=== PATIENT | female | born 1990 | race Caucasian/White ===

== ENCOUNTER 2016-05-21 06:48 | Emergency (ER) | payer BC ==
[~2016-05-21] VITALS: Ht 167.6 cm; Wt 82.5 kg
[~2016-05-21 06:48] MED LIST: BCPILLS PO; PRENTAB26 PO; [UNRECOGNIZED DRUG - REMARK] PO
[2016-05-21 06:51] VITALS: TEMP 37.1; Ht 167.6 cm; Wt 82.5 kg
[2016-05-21] MEDS ORDERED: ACET-749 PO (07:01)
[2016-05-21] MEDS ORDERED: FLUO10CA48 PO (07:01)
[2016-05-21] MEDS ORDERED: DiphenhydrAMINE HCL 50 MG/ML VIAL IV STA (07:03)
[2016-05-21] MEDS ORDERED: MoRPHine SULFATE 10 MG/ML CARP/VIAL IV STA (07:03)
[2016-05-21] MEDS ORDERED: ONDANSETRON INJ 2 MG/ML 2 ML VIAL IV STA (07:03)
[2016-05-21] MEDS ORDERED: DEXAMETHASONE SOD INJ 10 MG/ML VIAL IV ONE (08:00)
--- NOTE | 2016-05-21 08:59 | EMERGENCY ROOM VISIT NOTE ---
History First contact with patient: 06:53 Chief Complaint: HEADACHE Stated Complaint: HEADACHE 5 DAYS 29WKS CALLED L&D History of Present Illness The patient is a 26 year old female who presents to the Emergency Room with complaints of headache for the past 5 days. The patient is 29 weeks . She started with a headache 5 days ago in the left frontal parietal region. She denies any associated visual changes, dizziness. The patient admits to some nausea and vomiting. The patient denies any recent URI symptoms. She denies any arm or leg weakness. The patient states that she had a headache the entire first trimester of this . This is her first . The patient states when she had that headache it would go away with Tylenol. She tried Tylenol this time without any relief. She called in to speak with Dr. Parra's nurse yesterday and was prescribed Tylenol with Codeine. She states that has been taken away the headache. The patient denies any history of migraine headaches. She states this is not the worst headache of her life. Review of Systems 10 system review was performed and was negative unless stated otherwise history of present illness. Family History No pertinent family history Social History Smoking Status: Never Smoker Smokeless Tobacco Use: No Alcohol Use: none Drug Use: none Marital Status: Housing Status: lives with family Occupation Status: employed Current/Historical Medications Scheduled Fluoxetine (Prozac), Unknown Dose PO DAILY Multivit/Min/Iron/Fol Ac/Pren ( Vitamin), 1 TAB PO DAILY Scheduled PRN Acetaminophen/Codeine (Tylenol W/Codeine #3), 1 TAB PO Q4 PRN for Pain Allergies Coded Allergies: No Known Allergies (Unverified , 05/21/16) Physical Exam Vital Signs Date Time Temp Pulse Resp B/P Pulse Ox O2 Delivery O2 Flow Rate FiO2 05/21/16 08:02 94 111/73 98 05/21/16 06:51 37.1 88 16 119/71 97 Room Air Physical Exam GENERAL: 29 week 26-year-old female appears in no acute distress. MENTAL: Alert and oriented 3 EYES: PERRLA. EOMs intact. EARS: Canals clear. TMs without fluid level noted. NECK: Supple, no lymphadenopathy noted. No carotid bruits noted. LUNGS: Clear auscultation without wheezes rales or rhonchi. CARDIAC: Regular rate and rhythm without murmur. Pulses is full and equal throughout. NEURO:Cranial nerves two through 12 intact. Cerebellar function intact with [id number]. Fine motor intact with alternating finger motions. Medical Decision & Procedures Medications Administered Medications (Trade) Dose Ordered Sig/Yazmin Route Start Time Stop Time Status Last Admin Dose Admin Morphine Sulfate (MoRPHine SULFATE INJ) 6 mg NOW STAT IV 05/21/16 07:03 05/21/16 07:05 DC 05/21/16 07:18 6 MG Ondansetron HCl (Zofran Inj) 4 mg NOW STAT IV 05/21/16 07:03 05/21/16 07:05 DC 05/21/16 07:17 4 MG Diphenhydramine HCl (Benadryl Inj) 25 mg NOW STAT IV 05/21/16 07:03 05/21/16 07:05 DC 05/21/16 07:19 25 MG Dexamethasone Sodium Phosphate (Decadron Inj) 10 mg NOW ONCE IV 05/21/16 08:00 05/21/16 08:01 DC 05/21/16 08:01 10 MG ED Course The patient was evaluated. The patient's case was discussed with Dr. Guillen who agreed with treatment plan. IV access was obtained. Morphine 6 mg IV, Zofran 4 mg IV and Benadryl 25 mg IV. The patient was reevaluated and still had a slight headache therefore she was given Decadron 10 mg IV. The patient was reevaluated and stated that her head headache was now tolerable at a 4 out of 10 and was discharged home in stable condition. Medical Decision Differential includes: Acute intracranial bleed, trauma, meningitis, encephalitis, increased intracranial pressure, mass or mass effect, facial or dental infection, temporal arteritis, CVA, TIA, acute hypertensive emergency, sinusitis, carbon monoxide exposure. Impression Primary Impression: Headache Departure Information Dispostion Home / Self-Care Condition GOOD Referrals No Doctor, Assigned (PCP) Forms HOME CARE DOCUMENTATION FORM, IMPORTANT VISIT INFORMATION Patient Instructions Headache Pain, My [facility] Additional Instructions Tylenol every 6 hours as needed for pain. Take Tylenol with Codeine as needed for more severe headache. Do not drive while taking the Tylenol with Codeine. Make sure you do not take more than 4 g of Tylenol in a 24 hours. If symptoms persist or worsen, return to ER. Problem Qualifiers Primary Impression: Headache Headache type: unspecified Headache chronicity pattern: acute headache
[2016-05-21 09:08] VITALS: BP 131/72; PULSE 77; O2SAT 98
== END 2016-05-21 09:09 | disposition home or self-care (01) ==
LOC: C.EDB 06:49
DX: O26.893 Other specified pregnancy related conditions, third trimester (principal); R51 Headache; Z3A.29 29 weeks gestation of pregnancy

== ENCOUNTER 2016-07-26 13:31 | Outpatient (CLI) | payer BC ==
[~2016-07-26] VITALS: Ht 170.2 cm; Wt 89.0 kg
[~2016-07-26 13:31] MED LIST changes: +ACET-749 PO; -BCPILLS PO; +FLUO10CA48 PO; -[UNRECOGNIZED DRUG - REMARK] PO
[2016-07-26 15:10] VITALS: Ht 170.2 cm; Wt 89.0 kg
[2016-07-26] MEDS ORDERED: VALA500T60 PO (15:22)
--- NOTE | 2016-07-29 09:42 | EDITING REQUIRED CODING QUERY ---
DIAGNOSIS NEEDED To promote full compliance with coding requirements relating to patient care, physician participation is requested in all cases of clinical coder uncertainty. Please assist us with the question(s) below: Coding Question: The patient received care in labor and delivery on 07/26/16 as noted within the record. Please document the diagnosis that is being addressed by the medication/treatment. Provider Response: DIAGNOSIS: contractions Thank you for your assistance, Evy Rivera - Digital Watch Assembler
== END 2016-07-26 16:49 | disposition home or self-care (01) ==
LOC: C.OPB 13:31 → C.LD 13:31 → C.OPB 16:49
PROVIDERS: ATTEND Obstetrics & Gynecology
DX: O62.9 Abnormality of forces of labor, unspecified (principal); Z3A.38 38 weeks gestation of pregnancy

== ENCOUNTER 2016-07-26 21:00 | Inpatient (IN) | payer BC ==
[~2016-07-26] VITALS: Ht 170.2 cm; Wt 89.1 kg
[~2016-07-26 21:00] MED LIST changes: +VALA500T60 PO
[2016-07-26 21:07] VITALS: Ht 170.2 cm; Wt 89.1 kg
[2016-07-26] MEDS ORDERED: LACTATED RINGER'S 1000ML 1,000 ML IV PRN (23:17)
[2016-07-26] MEDS ORDERED: NURSING VERBAL MED ORDER ONE (23:30)
[2016-07-26] MEDS ORDERED: PENICILLIN G POTASSIUM IV 6 MU in DEXTROSE 5% 250ML 250 ML IV ONE (23:30)
[2016-07-26] MEDS ORDERED: BUTORPHANOL TARTRATE 1 MG/ML VIAL IV PRN (23:45)
[2016-07-26 23:47] LABS: HEMATOCRIT 32.5 % (37-47); MEAN CELL VOLUME 87.1 fL (80-100); MEAN CORPUSCULAR HEMOGLOBIN 30.6 pg (25-34); RED BLOOD COUNT 3.73 M/uL (4.2-5.4); WHITE BLOOD COUNT 12.22 K/uL (4.8-10.8)
[2016-07-26 23:48] LABS: MEAN CORPUSCULAR HGB CONC 35.1 g/dl (32-36); MEAN PLATELET VOLUME 11.4 fL (7.4-10.4); PLATELET COUNT 211 K/uL (130-400)
[2016-07-26] MEDS: LACTATED RINGER'S 1000ML 1,000 ML IV SCH (23:49)
[2016-07-27] MEDS ORDERED: EpHEDrine SULFATE INJ 50 MG/ML AMP ONE (02:00)
[2016-07-27] MEDS ORDERED: BUPIVACAINE 0.25% 30 ML VIAL ONE ×2 (02:00→11:50)
[2016-07-27] MEDS ORDERED: FENTANYL CITRATE INJ 50 MCG/1 ML 2 ML VIAL ONE ×2 (02:01→11:50)
[2016-07-27] MEDS ORDERED: FENTANYL 2MCG/ML ROPIV 1.25MG/ML 100ML BAG EPI ONE (02:01)
--- NOTE | 2016-07-27 02:16 | Progress Note ---
Progress Note Date of Service July 27, 2016. Progress Note Admit Note 26 F P0000 at 38.6 weeks with onset of labor. Cervix 6-7/90/0. FHT Cat 1. GBS positive. Will get epidural for pain.
[2016-07-27] MEDS: LACTATED RINGER'S 1000ML 1,000 ML IV SCH ×3 (02:25→09:35)
[2016-07-27] MEDS ORDERED: NALOXONE HCL INJ 1 MG in SODIUM CHLORIDE 0.9% 1000ML 1,000 ML IV PRN (02:52)
[2016-07-27] MEDS ORDERED: LACTATED RINGER'S 1000ML 500 ML IV PRN ×2 (02:52→08:15)
--- NOTE | 2016-07-27 02:58 | Progress Note ---
Progress Note Date of Service July 27, 2016. Progress Note Epidural placed for labor pain management. No resistance felt to tuhoy needle insertion. Free flowing CSF noted on removal of Tuhoy stylette. Stylette replaced and needle withdrawn approximately 1cm. TOMI was felt immediately at this new location. Catheter threaded, negative aspiration and negative test dose. Epidural was dosed at this point and run at normal settings. Patient was educated on complication and the possibility of a PDPH. I explained that if this headache should arise while she was still in house, we could perform EBP at bedside before her discharge. Would prefer that this catheter be capped and stay in place after delivery. 24 hours would be best, but at least 12 hours may help decrease the incidence of a PDPH.
[2016-07-27] MEDS ORDERED: DiphenhydrAMINE HCL 50 MG/ML VIAL IV PRN (03:00)
[2016-07-27] MEDS ORDERED: NALOXONE HCL INJ 0.4 MG/1 ML VIAL/CARP IV PRN (03:00)
[2016-07-27] MEDS ORDERED: EpHEDrine SULFATE INJ 50 MG/ML AMP IV PRN (03:00)
[2016-07-27] MEDS ORDERED: ONDANSETRON INJ 2 MG/ML 2 ML VIAL IV PRN (03:00)
[2016-07-27] MEDS ORDERED: NALBUPHINE HCL INJ 10 MG/ML AMP IV PRN (03:00)
[2016-07-27] MEDS ORDERED: PROMETHAZINE HCL INJ 6.25 MG in SODIUM CHLORIDE 0.9% 50ML 50 ML IV PRN (03:00)
[2016-07-27] MEDS: PENICILLIN G POTASSIUM IV 3 MU in DEXTROSE 5% 100ML 100 ML IV PRN ×4 (03:47→15:06)
[2016-07-27] MEDS: FENTANYL 2MCG/ML ROPIV 1.25MG/ML 100ML BAG EPI PRN ×2 (07:06→12:08)
[2016-07-27] MEDS: OXYTOCIN 30 UNITS/500ML NSS IV PRN ×2 (08:37→16:22)
[2016-07-27] MEDS ORDERED: FENTANYL 2MCG/ML ROPIV 1.25MG/ML 100ML BAG EPI PRN (12:15)
[2016-07-27] MEDS ORDERED: METHYLERGONOVINE MALEATE 0.2 MG/ML AMP ONE (16:00)
[2016-07-27] MEDS ORDERED: MISOPROSTOL 200 MCG TAB ONE (16:24)
[2016-07-27] MEDS ORDERED: SUPERCREAM 0.870 % 15GM JAR EXT PRN (16:45)
[2016-07-27] MEDS ORDERED: ACETAMINOPHEN/CODEINE 300/30MG TAB PO PRN ×2 (16:45)
[2016-07-27] MEDS ORDERED: LANOLIN OINT EXT PRN ×2 (16:45)
[2016-07-27] MEDS ORDERED: OXYCODONE/ACETAMINOPHEN 5-325 TAB PO PRN (16:45)
[2016-07-27] MEDS ORDERED: OXYTOCIN 30 UNITS/500ML NSS IV PRN (16:45)
[2016-07-27] MEDS ORDERED: HYDROCORTISONE ACETATE 25 MG SUPP PR PRN (16:45)
[2016-07-27] MEDS ORDERED: METHYLERGONOVINE MALEATE 0.2 MG/ML AMP IM ONE (16:45)
[2016-07-27] MEDS ORDERED: MISOPROSTOL 200 MCG TAB PR ONE (17:00)
--- NOTE | 2016-07-27 17:25 | OPERATIVE REPORT ---
DATE OF OPERATION: 07/27/2016 DELIVERY NOTE The patient delivered a live female in occiput anterior presentation. There was no nuchal cord. Infant was delivered and placed on mother's abdomen. At this point, it was noted that she had at terminal meconium. Delayed cord clamp was performed. Cord gas as well as cord blood was obtained. Placenta was spontaneously delivered. Infant's weight is pending. Apgars 8 and 9. Inspection of the perineum showed a second-degree midline laceration which was repaired in layers with 2-0 Vicryl. Rectal exam post-repair showed good sphincter tone. ESTIMATED BLOOD LOSS: 500 mL. The patient received IV Pitocin, Methergine and Cytotec. There was good hemostasis at the end of the repair. Baby and mother are doing well in recovery. COUNTS: Lap, sponges and needles accounted for x2. I attest to the content of the Intraoperative Record and any orders documented therein. Any exceptio ns are noted below.
[2016-07-27] MEDS: IBUPROFEN 600 MG TAB PO PRN (18:03)
[2016-07-27 18:24] LABS: BENZODIAZEPINE, URINE NEG (NEG); COCAINE,URINE NEG (NEG); PHENCYCLIDINE, URINE NEG (NEG)
[2016-07-27 19:00] VITALS: BP 134/84; PULSE 93; TEMP 37.3
[2016-07-27] MEDS: DOCUSATE SODIUM 100 MG CAP PO SCH (19:12)
[2016-07-27] MEDS: BENZOCAINE 20% AER SPR 82.5 GM CAN EXT PRN (19:13)
[2016-07-27 23:45] VITALS: BP 135/87; PULSE 89; TEMP 36.9; O2SAT 98
[2016-07-28] MEDS: IBUPROFEN 600 MG TAB PO PRN ×3 (00:05→16:25)
[2016-07-28 03:52] VITALS: BP 127/83; PULSE 79; TEMP 37.1; O2SAT 96
--- NOTE | 2016-07-28 07:27 | OB/GYN Progress Note ---
DELIVERY MAN Progress Note Date of Service: July 28, 2016. Patient is seen and examined. She feels well, no complaints. Ambulating without dizziness Voiding without difficulty Tolerating regular diet with out N&V Bleeding is minimal No fever/ chills/ CP/ SOB/ N&V/ Leg pain Breast feeding without problems Date Time Temp Pulse Resp B/P Pulse Ox O2 Delivery O2 Flow Rate FiO2 07/28/16 03:52 37.1 79 16 127/83 96 Room Air 07/27/16 23:45 36.9 89 16 135/87 98 Room Air 07/27/16 23:45 Room Air 07/27/16 19:00 Room Air 07/27/16 19:00 37.3 93 18 134/84 Room Air PE: General: Alert, orientedx3, NAD Abd: soft, NT, fundus firm, below Umbilicus Perineum intact, Lochia rubra minimal Ext; NT, no edema AP: 26 yo s/p , ppd# 1 VSS Afebrile doing well Continue routine care All questions were answered D/C home tomorrow
[2016-07-28 07:30] VITALS: BP 128/89; PULSE 79; TEMP 36.4; O2SAT 98
--- NOTE | 2016-07-28 07:44 | Anesthesia Procedure Note ---
Anesthesia Epidural Removal Nt Date & Time July 28, 2016 at 07:40 Vital Signs Pain Intensity: 5.0 Vital Signs Past 12 Hours Date Time Temp Pulse Resp B/P Pulse Ox O2 Delivery O2 Flow Rate FiO2 07/28/16 03:52 37.1 79 16 127/83 96 Room Air 07/27/16 23:45 36.9 89 16 135/87 98 Room Air 07/27/16 23:45 Room Air Notes Mental Status: alert / awake / arousable, participated in evaluation Nausea / Vomiting: adequately controlled Pain: adequately controlled Airway Patency, RR, SpO2: stable & adequate BP & HR: stable & adequate Hydration State: stable & adequate Neuraxial Anesthesia: was administered, sensory block is resolved Anesthetic Complications: no major complications apparent, pt satisfied with anesthetic care Epidural: removed without complications, with tip intact Notes: Pt had an dural puncture during epidural insertion. I spoke to the patient of the possibility of developing a postdural puncture headache. I recommended fluid hydration, caffeine, and ibuprofen/tylenol as needed for her KRAMER. I explained that if her symptoms persisted, she needed to return to the hospital for re-evaluation and possible epidural blood patch. She currently is asymptomatic. Pt was understanding.
[2016-07-28 07:49] LABS: HEMATOCRIT 27.2 % (37-47)
[2016-07-28] MEDS: DOCUSATE SODIUM 100 MG CAP PO SCH ×2 (08:25→19:53)
[2016-07-28] MEDS: FLUOXETINE HCL 10 MG CAP PO SCH (08:25)
[2016-07-28] MEDS: PRENATAL VITAMIN TAB PO SCH (08:25)
[2016-07-28] MEDS: FERROUS SULFATE 325 MG TAB PO SCH (08:25)
[2016-07-28] MEDS: ACETAMINOPHEN 325 MG TAB PO PRN ×2 (09:17→16:25)
[2016-07-28 12:30] VITALS: BP 143/100; PULSE 79; TEMP 37; O2SAT 98
--- NOTE | 2016-07-28 12:54 | Progress Note ---
Progress Note Date of Service July 28, 2016. Progress Note Patient with labor epidural placed on 07/26. Wet tap noted with subsequent epidural catheter placed at same level. Patient delivered 07/27 afternoon and catheter was capped and left in place until 730 am this morning to decrease the likely zapien of PDPH. Patient doing well now. Sitting up in bed. Has had a few sporadic headaches since delivery but they have followed her typical headache pattern and were not postural in nature. She is planned for discharge tomorrow. I explained to the patient that while it is encouraging that she has not developed a headache at this point in time, it is still possible to develop the headache over the coming days. I informed her of the availability of treatment should this complication occur and that we will see her through the ED if necessary. The patient also provided a contact phone number and we will plan to follow up with her on Wednesday to see how she is doing.
[2016-07-28 16:30] VITALS: BP 134/94; PULSE 70; TEMP 36.7
[2016-07-28] MEDS ORDERED: BISACODYL 5 MG TABEC PO SCH (20:00)
--- NOTE | 2016-07-28 20:08 | Anesthesiology Progress Note ---
Anesthesia Progress Note Date of Service July 28, 2016. Progress Notes I was called to evaluate the patient 2/2 positional headache. I had spoken to the patient earlier about the possibility of developing a postdural puncture headache. She was attempting conservative therapy (oral hydration, caffeine, over the counter analgesics) without success. I spoke to her about the risks/ benefits of an epidural blood patch, and she agreed. Consent was obtained from the patient. A timeout was completed before starting the procedure. I sterilely draped the patient's back. The L3-4 interspace was identified. A 17G Touhy needle was advanced with +TOMI to air. 25mL of the patient's blood was sterilely obtained from the patient's R A/C vein. The blood was injected through the epidural. The patient was re-evaluated after about 20 minutes, and she stated having improvement in her headache. I told the patient that if her headache returned, if she developed back pain, or if she develops fevers chills, she would need to tell her nurse. Pt was understanding.
[2016-07-28 23:30] VITALS: BP 136/84; PULSE 82; TEMP 36.8
[2016-07-29] MEDS: IBUPROFEN 600 MG TAB PO PRN (03:30)
[2016-07-29 06:37] LABS: HEMATOCRIT 27.3 % (37-47); MEAN CELL VOLUME 87.5 fL (80-100); MEAN CORPUSCULAR HEMOGLOBIN 29.8 pg (25-34); MEAN CORPUSCULAR HGB CONC 34.1 g/dl (32-36); PLATELET COUNT 164 K/uL (130-400); RED BLOOD COUNT 3.12 M/uL (4.2-5.4); WHITE BLOOD COUNT 10.91 K/uL (4.8-10.8)
[2016-07-29] MEDS ORDERED: BISACODYL 10 MG SUPP PR PRN (07:00)
[2016-07-29] MEDS ORDERED: MTR600X PO (07:18)
--- NOTE | 2016-07-29 07:19 | Discharge Instructions ---
Discharge Instructions Date of Service July 29, 2016. Admission Reason for Admission: LABOR Discharge Discharge Diagnosis / Problem: Vaginal delivery Discharge Goals Goal(s): Routine recovery after delivery Medications Continue Dispensed Medications: supercream, dermaplast, tucks, lansinoh Activity Recommendations Activity Limitations: per Instructions/Follow-up section . Instructions / Follow-Up Instructions / Follow-Up ACTIVITY RECOMMENDATIONS: * Gradual return to full activity over the next 2-3 weeks. * No lifting - nothing heavier than baby over the next 2-3 weeks. * Do not engage in vigorous exercise, sexual activity or sports until cleared by your physician. * Do not drive or operate any motorized equipment until cleared by your physician. * You may shower/bathe daily. BREAST CARE: If you are not breast feeding: * Wear a supportive bra 24 hours a day for one to two weeks. * Avoid stimulating your breasts and nipples as much as possible during the first few weeks after delivery. * When taking a shower, have the warm water hit your back, not breasts. * When your breasts feel full, apply ice packs. Usually three to four times a day helps ease the discomfort. * Take a mild pain medication (Tylenol/Motrin) when you are uncomfortable. If breast feeding: * Use breast milk to lubricate nipples. Lansinoh cream may be used for sore nipples. You do not need to remove cream prior to breast feeding. If using a different brand of cream, check the label for directions regarding removal of cream prior to nursing. * Wear a supportive bra. * If having problems with breasts or breast feeding, call a chain sales consultant or your health care provider. EPISIOTOMY CARE: After delivery, if you have an episiotomy (stitches), the following steps will ease discomfort and aid healing. * For the first 24 hours after delivery, place ice packs next to your episiotomy to help reduce swelling. * After the first 24 hour-period, sitz baths, either portable or in the tub, are suggested. A shower with a shower arm sprayed over the episiotomy may be comforting. * Kusum care should be done after each voiding and bowel movement. Squirt warm water from a plastic bottle over the perineum (region of the body between the anus and urinary opening) and pat dry. * Use Dermoplast to ease discomfort. Shake container. [place] directly over the episiotomy. * Place a Tucks on a clean sanitary pad next to your episiotomy. OVER THE COUNTER MEDICATION: * For discomfort or pain, you may use Acetaminophen (Tylenol), Ibuprofen (Advil ), or Naproxen (Aleve) following the package directions. * For constipation you may use Colace following the package directions. SPECIAL CARE INSTRUCTIONS: When you are discharged from the hospital, it is important for you to follow the instructions listed below: * During the first week at home, you should be able to care for yourself and your baby. In addition, the usual light household activities are encouraged. * Limit your activities to the way you feel. Do not try to clean the house or move furniture. Be sensible. * If you actively engage in sports and have done so up until the time of your delivery, you may resume these activities as soon as you feel able. This may take up to one month or even longer. Use good judgment. * Continue to take your vitamins for at least six weeks after the of your baby. * Your diet need not be limited unless you were on a special diet before your delivery. Breast-feeding mothers need around 2500 calories per day and at least 64-80 ounces of fluid per day (8 to 10 glasses). * You should eat foods from the four major food groups. Crash diets or fad diets are to be avoided. Eating lean meats, fresh fruits and vegetables, low-fat dairy products, high fiber foods and a regular exercise program, will help you get back to your pre- weight without putting your health at risk. * Constipation is sometimes a problem after delivery. Take a mild laxative as needed. If breast feeding, Milk of Magnesia is acceptable to use. You may use a suppository or Fleets enema if no episiotomy. * A daily shower or tub bath is suggested. Be sure to thoroughly and gently dry the perineum. * A bloody vaginal discharge will usually continue until around four weeks post . A small amount of bleeding may continue for as long as six weeks. Vaginal discharge changes from the bright red bleeding after delivery to pink then brownish and finally yellowish-pink before becoming white and disappearing. * Bleeding may increase with activity. Your first period may come in 4-8 weeks. If you are breast feeding, your period may be delayed even longer. * [place] (sex) can begin whenever both you and your partner feel comfortable and do not have any form of genital infection. It is recommended that you wait until after your return appointment and discuss with your physician. If you have questions, please talk to your health care practitioner. A condom should be used to prevent infection and . * Foreplay, gentle intercourse and lubrication is very important the first several times to prevent pain. A water-based lubricant such as K-Y jelly or Astroglide may be used. * Tampons may be used six weeks after delivery. * Douching should be avoided for 6 weeks after delivery. * If you have RH negative blood and your baby is RH positive, you will receive RHOGAM by injection prior to discharge. The nurse will give you a card to keep with you that has the date and place that you received RHOGAM after delivery. * During your care, you had a Rubella screen done to check for the presence of rubella antibodies in your blood. If your test was negative, you will receive a Rubella vaccine prior to discharge. This vaccine may cause a fever, soreness at the injection site and flu-like symptoms. If these symptoms persist, notify your health care practitioner. is not advised for three months after a Rubella vaccine. There is a higher chance of having a baby with defects if conceived within three months of getting the vaccine. * If you were discharged 24 hours from delivery or before 48 hours: Visiting nurses will come to your home 48 hours after discharge to assess you and your baby. The visiting nurse will meet with you while you are in the hospital to arrange a time and get directions to your home. * Verbalizes understanding of car seat law as reviewed with patient nursing. * Car Seat hand-out given and reviewed with patient by nursing. * Shaken baby information reviewed with patient by nursing. Call you doctor if: * Heavy bleeding (saturating several pads an hour) or passing clots the size of your fist. * A fever >101 degrees F (38.3 degrees C) on two occasions four hours apart and/or chills. * Unusual pain in the pelvic or vaginal areas. * "Baby Blues" lasting longer than two weeks. If you have any questions or concerns, call your health care practitioner at . FOLLOW-UP VISIT: * Please call the office at to schedule a 6 week examination. It is important you keep this appointment. * It is important for you to make arrangements for either yearly or twice yearly check-ups thereafter. Current Hospital Diet Patient's current hospital diet: Regular OB Diet Discharge Diet Recommended Diet: Regular OB Diet Pending Studies Studies pending at discharge: no Medical Emergencies . Who to Call and When: Medical Emergencies: If at any time you feel your situation is an emergency, please call 911 immediately. . Non-Emergent Contact Non-Emergency issues call your: Primary Care Provider, Methane Gas Collection System Operator . . "Provider Documentation" section prepared by Jarod Das. . VTE Core Measure Inpt VTE Proph given/why not?: Treatment not indicated
--- NOTE | 2016-07-29 07:24 | OB/GYN Progress Note ---
HANDS AND DIAL INSPECTOR Progress Note Date of Service July 29, 2016. Subjective conversation w/ patient, physical exam Ambulation: ambulating normally Voiding: no voiding problems Passing Gas: Yes Diet Tolerance: Regular Diet Lochia: Small Feeding Type: Bottle Feeding Pain: 05/22 Notes: Doing well, no concerns. Pain well controlled. Lochia decreasing. Would like to go home today. Objective Vital Signs Date Time Temp Pulse Resp B/P Pulse Ox O2 Delivery O2 Flow Rate FiO2 07/28/16 23:30 36.8 82 18 136/84 Room Air 07/28/16 23:30 Room Air 07/28/16 16:30 36.7 70 16 134/94 Room Air 07/28/16 16:30 Room Air 07/28/16 12:30 37.0 79 18 143/100 98 Room Air 07/28/16 07:30 36.4 79 18 128/89 98 Room Air 07/28/16 07:30 98 Room Air Physical Exam General Appearance: WELL-APPEARING Respiratory/Chest: chest non-tender, lungs clear Cardiovascular: regular rate, rhythm Abdomen: normal bowel sounds, soft Fundus: Firm Extremities: normal range of motion, non-tender, no calf tenderness Laboratory Results Last 24 Hours Test 07/29/16 06:28 White Blood Count 10.91 K/uL Red Blood Count 3.12 M/uL Hemoglobin 9.3 g/dL Hematocrit 27.3 % Mean Corpuscular Volume 87.5 fL Mean Corpuscular Hemoglobin 29.8 pg Mean Corpuscular Hemoglobin Concent 34.1 g/dl RDW Standard Deviation 42.4 fL RDW Coefficient of Variation 13.3 % Platelet Count 164 K/uL Mean Platelet Volume 11.0 fL Assessment and Plan Post- Day Number: 2 Continue Routine Care: -D/C home today -F/U in 6 weeks.
[2016-07-29 08:15] VITALS: BP 130/82; PULSE 75; TEMP 36.8; O2SAT 98
[2016-07-29] MEDS: PRENATAL VITAMIN TAB PO SCH (08:52)
[2016-07-29] MEDS: FLUOXETINE HCL 10 MG CAP PO SCH (08:52)
[2016-07-29] MEDS: FERROUS SULFATE 325 MG TAB PO SCH (08:52)
[2016-07-29] MEDS: DOCUSATE SODIUM 100 MG CAP PO SCH (08:53)
[2016-07-29] MEDS: BENZOCAINE 20% AER SPR 82.5 GM CAN EXT PRN (12:15)
[2016-07-29 12:35] VITALS: BP_DIAS 82; PULSE 75; TEMP 36.8
== END 2016-07-29 13:43 | disposition home or self-care (01) | DRG 775 ==
LOC: C.LD 21:00 → C.OPB 21:00 → C.LD 23:21 → C.OPB 23:21 → C.OBG 07-27 18:52
PROVIDERS: ADMIT Obstetrics & Gynecology; ATTEND Obstetrics & Gynecology
PROC: 0HQ9XZZ Repair Perineum Skin, External Approach (ICD-10-PCS; principal; 2016-07-27)
PROC: 10E0XZZ Delivery of Products of Conception, External Approach (ICD-10-PCS; principal; 2016-07-27)
PROC: 3E0S3GC Introduction of Other Therapeutic Substance into Epidural Space, Percutaneous Approach (ICD-10-PCS; 2016-07-28)
DX: O99.824 Streptococcus B carrier state complicating childbirth (principal); O70.1 Second degree perineal laceration during delivery; O99.355 Diseases of the nervous system complicating the puerperium; G97.1 Other reaction to spinal and lumbar puncture; Z37.0 Single live birth; Z3A.38 38 weeks gestation of pregnancy

== ENCOUNTER 2019-04-24 08:14 | Inpatient (IN) ==
[2019-04-24] MEDS ORDERED: OXYTOCIN 30 UNITS/500 ML BAG IV PRN ×2 (12:53→22:19)
[2019-04-24] MEDS ORDERED: DINOPROSTONE 10 MG INSERT PV ONE (13:00)
[2019-04-24 13:18] LABS: Hematocrit (blood only) 33.2 % (37-47); Hemoglobin 11.5 g/dL (12.0-16.0); Mean Corpuscular Volume 86.7 fL (80-100); Mean Platelet Volume 12.6 fL (7.4-10.4); Platelet Count 159 K/uL (130-400); RDW Coefficient of Variation 13.3 % (11.5-14.5); RDW Standard Deviation 41.8 fL (36.4-46.3); Red Blood Count 3.83 M/uL (4.2-5.4); White Blood Count 9.27 K/uL (4.8-10.8)
[2019-04-24 13:24] LABS: Mean Corpuscular Hgb Conc 34.6 g/dL (32-36)
--- NOTE | 2019-04-24 13:42 | History & Physical Report ---
Date of Service April 24, 2019 Assessment & Plan (1) Elective induction of labor planned: 28 yo at 38..2 wks with Di/ Di twins, both vertex presentation, FHR reassuring, GBS negative IOL at term Discussed labor, IOL and delivery of twins, possible complications, possible need for C section even after Baby A would be delivered vaginally Discussed possible scenarios After long discussion she decided for trial of vaginal delivery/ IOL Plan labs, cervical ripening with Cervidil All questions were answered (2) Dichorionic diamniotic twin in third trimester: History of Present Illness Primary Care Provider: Melany Garcia DO Patient is seen and examined She us a 28 yo at 38.2 wks with Di/ Di twins, here for scheduled IOL at term She feels well other than discomfort of No ctxs/ LOF/ VB/ KRAMER/ Change in vision/ N&V +FM's Her has been complicated by 1) Di/ Di twins 2) Rh negative 3) CF carrier, FOB negative 4) h/o Genital HSV during 1st , has been on 500 mg Valtrex since 2016 5) h/o depression with anxiety: on Prozac and feels well 6) h/o LEEP 7) h/o Marijuana use per records but she denied Allergies Allergy/AdvReac Type Severity Reaction Status Date / Time No Known Allergies Allergy Unverified 02/09/19 04:43 Home Medications Home Medications Medication Instructions Recorded Confirmed Type PNV cmb#95-ferrous fumarate-FA 1 tab PO DAILY 10/24/18 02/09/19 History [] fluoxetine 20 mg PO DAILY 10/24/18 02/09/19 History valacyclovir 500 mg PO DAILY 10/24/18 02/09/19 History Iron Supplement 1 tab PO DIRECTED 02/09/19 02/09/19 History aspirin 81 mg PO DAILY 02/09/19 02/09/19 History calcium carbonate [Calcium 500] 500 mg PO DAILY 02/09/19 02/09/19 History Patient History Medical History Attention deficit disorder (ADD) Clostridium difficile infection 2015 Former smoker Last in 2012 Genital herpes HPV test positive Kidney stones Marijuana use Last in 2015 Migraines , twins Surgical History H/O LEEP H/O wisdom tooth extraction Hx of tonsillectomy Social History Preferred Language: Serbian Feels Safe at Home: Yes Smoking Status: Never smoker 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 No h/o other STD's Review of Systems All systems reviewed & are unremarkable except as noted in HPI & below Physical Exam Constitutional: WD/WN, vitals as above well developed and well nourished NAD Gastrointestinal (Abdomen): Abd: soft, NT, Gravid Bed side US done: vertex/ vertex, baby A on left side, FHR 150's Baby on right side, FHR 140's AFV normal Placenta anterior Genitourinary: normal external appearance VE: Cervix 2/ 70%/ -3, vertex felt Results & Data Vital Signs (Past 12 Hours) Vital Signs Temp Pulse Resp BP 04/24/19 12:40 97 H 143/88 H 04/24/19 12:38 36.4 C L 18 Code Status & VTE Plan VTE Prophylaxis Plan VTE Prophylaxis will be ordered: Yes Monitoring External Monitor NST: 2 different baselines, FHR noted Both reactive with accels and moderate variability, no decels Tocodynamometer No ctxs
[2019-04-24 13:49] LABS: Alanine Aminotransferase 11 U/L (12-78); Albumin Level 2.6 gm/dl (3.4-5.0); Aspartate Aminotransferase 13 U/L (15-37); BUN Creatinine Ratio 16.8 (10-20); Blood Urea Nitrogen 12 mg/dl (7-18); Calcium 8.8 mg/dl (8.5-10.1); Carbon Dioxide 19 mmol/L (21-32); Chloride 107 mmol/L (98-107); Est GFR (African American) 135.4; Est GFR (Non-African American) 116.8; Glucose 98 mg/dl (70-99); Potassium 3.8 mmol/L (3.5-5.1); Sodium 134 mmol/L (136-145)
[2019-04-24 13:51] LABS: Albumin Globulin Ratio 0.7 (0.9-2); Alkaline Phosphatase 193 U/L (45-117); Bilirubin,Total 0.3 mg/dl (0.2-1); Globulin 3.9 gm/dl (2.5-4.0); Total Protein 6.5 gm/dl (6.4-8.2)
[2019-04-24] MEDS: LACTATED RINGER'S 1,000 ML IV PRN ×3 (14:11→20:54)
[2019-04-24 14:18] LABS: Amphetamines+Metham, Urine Neg (Neg); Barbiturates, Urine Neg (Neg); Benzodiazepine, Urine Neg (Neg); Cocaine, Urine Neg (Neg); MDMA (Ecstacy), Urine Neg (Neg); Methadone, Urine Neg (Neg); Opiate, Urine Neg (Neg); Phencyclidine, Urine Neg (Neg)
[2019-04-24] MEDS ORDERED: BUTORPHANOL TARTRATE 1 MG/ML VIAL IV PRN (15:40)
[2019-04-24] MEDS ORDERED: CALCIUM CARBONATE 500 MG CHEWABLE TAB PO PRN (16:42)
[2019-04-24] MEDS ORDERED: BUPIVACAINE 0.25% 30 ML VIAL ONE (17:32)
[2019-04-24] MEDS ORDERED: fentaNYL citrate 100 MCG/2 ML VIAL ONE (17:32)
[2019-04-24] MEDS ORDERED: ePHEDrine sulfate 50 MG/ML AMP ONE (17:32)
[2019-04-24] MEDS ORDERED: fentaNYL 2MCG/ML ROPIV 1.25MG/ML 100 ML BAG EPI ONE (17:33)
--- NOTE | 2019-04-24 17:33 | Obstetrical Progress Note ---
Date of Service April 24, 2019 Assessment & Plan Admission and Anticipated Discharge Date Admission Date: April 24, 2019 Subjective Patient is reevaluated Feels more painful ctxs and desires epidural for pain VE: 3/ 90%/ -2, Cervidil is removed CTXS Q 1-2 min FHR categ I for Baby A and B Plan epidural for pain and continue to monitor Results & Data ([facility]) Vital Signs (Past 12 Hours) Vital Signs Temp Pulse Resp BP 04/24/19 16:00 16 04/24/19 15:00 20 04/24/19 14:55 80 138/73 04/24/19 14:48 73 136/76 04/24/19 14:41 80 151/98 H 04/24/19 14:30 18 04/24/19 13:00 36.4 C L 18 04/24/19 12:40 97 H 143/88 H 04/24/19 12:38 36.4 C L 18
--- NOTE | 2019-04-24 17:46 | Anesthesiology Consultation ---
Date of Service April 24, 2019 Assessment & Plan ASA ASA2 Proposed Anesthesia Anesthesia Type: Labor Epidural Risk / Benefits Reviewed With: PT / POA / Parent / Guardian, Accepts Plan and Informed Consent Obtained History Height/Weight Height: 5 ft 6 in Weight: 96.615 kg Allergies Allergy/AdvReac Type Severity Reaction Status Date / Time No Known Allergies Allergy Unverified 02/09/19 04:43 Medications Home Medications Medication Instructions Recorded Confirmed Last Taken PNV [id number]-ferrous fumarate-FA 1 tab PO DAILY 10/24/18 04/24/19 04/24/19 [] fluoxetine 20 mg PO DAILY 10/24/18 04/24/19 Unknown valacyclovir 500 mg PO DAILY 10/24/18 04/24/19 04/23/19 Iron Supplement 1 tab PO DIRECTED 02/09/19 04/24/19 04/24/19 aspirin 81 mg PO DAILY 02/09/19 04/24/19 04/23/19 calcium carbonate [Calcium 500] 500 mg PO DAILY 02/09/19 04/24/19 04/24/19 Active Medications Generic Name Dose Route Start Last Admin Trade Name Freq PRN Reason Stop Dose Admin Lactated Ringer's 1,000 mls @ 150 mls/hr 04/24/19 12:53 04/24/19 17:15 Lr IV 04/26/19 12:52 999 mls/hr .[id number] PRN Infusion L&D Protocol Protocol NPO Date Last Intake of Fluids: 04/24/19 Time Last Intake of Fluids: 17:00 Date Last Intake of Solids: 04/24/19 Time Last Intake of Solids: 07:00 Past Medical History Medical History Attention deficit disorder (ADD) Clostridium difficile infection 2016 Former smoker Last in 2012 Genital herpes HPV test positive Kidney stones Marijuana use Last in 2016 Migraines , twins Exercise / Class Metabolic Activity II 4-5 Yardwork/Stairs/Walk up hill Past Surgical History Surgical History H/O LEEP H/O wisdom tooth extraction Hx of tonsillectomy Past Anesthesia History No Hx of Anesthesia Complications and No Family Hx of Anesthesia Complications History of PONV No Hx of PONV and No Hx of Motion Sickness Social History Smoking Status: Former smoker Smoking End Date: 2012 Hx Alcohol Use: No Hx Substance Use: Yes substance use type: former substance user and marijuana Last Used Substance Other:: Admitted to marijuana use with this RN privately in bathroom. MD aware Review of Systems denies fever/cough/ colds/ chest pain/ SOB/ JARED Constitutional: no fever and no chills Respiratory: no cough and no dyspnea denies JARED Cardiovascular: no chest pain and no dyspnea on exertion Physical Exam Vital Signs Last Vital Signs Temp 36.4 C L 04/24/19 13:00 Pulse 81 04/24/19 17:42 Resp 16 04/24/19 16:00 BP 138/73 04/24/19 14:55 Pulse Ox 100 04/24/19 17:42 ENMT Mouth: no TMJ abnormality and no dentition abnormality Thyromental Distance: > or= 3.5 Finger Breadths Mallampati Class: II Neck neck extension not limited Respiratory normal respiratory effort; no respiratory distress Auscultation: lungs clear to auscultation bilaterally Cardiovascular Rate/Rhythm: regular rate and regular rhythm Neurologic moves all extremities Psychiatric Orientation: alert and oriented x 3 Testing Laboratory Results 04/24/19 13:03 04/24/19 13:03 Blood Type O Negative 04/24/19 13:03 Antibody Screen NEGATIVE 04/24/19 13:03
[2019-04-24] MEDS ORDERED: DiphenhydrAMINE HCL 50 MG/ML VIAL IV PRN (18:27)
[2019-04-24] MEDS ORDERED: ePHEDrine sulfate 50 MG/ML AMP IV PRN (18:27)
[2019-04-24] MEDS ORDERED: NALBUPHINE HCL INJ 10 MG/ML AMP IV PRN (18:27)
[2019-04-24] MEDS ORDERED: PROMETHAZINE HCL 25 MG in SODIUM CHLORIDE 0.9% 50 ML IV PRN (18:27)
[2019-04-24] MEDS ORDERED: NALOXONE HCL 1 MG in SODIUM CHLORIDE 0.9% 1000ML 1,000 ML IV PRN (18:27)
[2019-04-24] MEDS ORDERED: ONDANSETRON INJ 2 MG/ML 2 ML VIAL IV PRN (18:27)
[2019-04-24] MEDS ORDERED: NALOXONE HCL 0.4 MG/1 ML VIAL/CARP IV PRN (18:27)
[2019-04-24] MEDS ORDERED: fentaNYL 2MCG/ML ROPIV 1.25MG/ML 100 ML BAG EPI PRN (18:27)
--- NOTE | 2019-04-24 19:30 | Obstetrical Progress Note ---
Date of Service April 24, 2019 Assessment & Plan Admission and Anticipated Discharge Date Admission Date: April 24, 2019 Subjective Patient is reevaluated Received epidural for pain Comfortable now Bbaby had FHR decels to 90's for over a minute VE: 3/ 90%/ -2 Bed side US done: confirmed FHR for both, Baby A 120's, B 130's CTXS Q 1-4 min continue to monitor closely Results & Data ([facility]) Vital Signs (Past 12 Hours) Vital Signs Temp Pulse Resp BP Pulse Ox 04/24/19 19:27 78 100 04/24/19 19:26 77 148/91 H 04/24/19 19:22 81 148/94 H 100 04/24/19 19:17 89 100 04/24/19 19:12 70 100 04/24/19 19:07 68 100 04/24/19 19:06 78 143/78 H 04/24/19 19:02 71 99 04/24/19 18:57 76 99 04/24/19 18:52 81 146/86 H 99 04/24/19 18:47 73 100 04/24/19 18:42 83 99 04/24/19 18:37 79 152/89 H 99 04/24/19 18:32 84 98 04/24/19 18:30 20 04/24/19 18:27 80 98 04/24/19 18:22 76 99 04/24/19 18:21 77 151/73 H 04/24/19 18:19 76 141/72 H 04/24/19 18:17 77 160/79 H 100 04/24/19 18:15 78 148/74 H 04/24/19 18:13 75 149/80 H 04/24/19 18:12 73 100 04/24/19 18:11 78 146/77 H 04/24/19 18:09 77 147/80 H 04/24/19 18:07 96 H 154/82 H 100 04/24/19 18:05 83 158/82 H 04/24/19 18:03 81 161/86 H 04/24/19 18:02 84 100 04/24/19 17:57 85 100 04/24/19 17:52 84 100 04/24/19 17:47 75 100 04/24/19 17:42 81 100 04/24/19 17:37 80 100 04/24/19 17:32 86 100 04/24/19 17:05 20 04/24/19 16:00 16 04/24/19 15:00 20 04/24/19 14:55 80 138/73 04/24/19 14:48 73 136/76 04/24/19 14:41 80 151/98 H 04/24/19 14:30 18 04/24/19 13:00 36.4 C L 18 04/24/19 12:40 97 H 143/88 H 04/24/19 12:38 36.4 C L 18
[2019-04-24] MEDS ORDERED: Nursing to Pharmacy Communication ONE (20:29)
[2019-04-24] MEDS ORDERED: METHYLERGONOVINE MALEATE 0.2 MG/ML AMP ONE (22:02)
[2019-04-24] MEDS ORDERED: SUPERCREAM 0.870% 15 GM JAR EXT PRN (22:19)
[2019-04-24] MEDS ORDERED: miSOPROStoL 200 MCG TAB PR ONE (22:19)
[2019-04-24] MEDS ORDERED: METHYLERGONOVINE MALEATE 0.2 MG TAB PO STA (22:19)
[2019-04-24] MEDS ORDERED: bisacodyL 10 MG SUPP PR PRN (22:19)
[2019-04-24] MEDS ORDERED: BENZOCAINE 20% AER SPR 82.5 GM CAN EXT PRN (22:19)
[2019-04-24] MEDS ORDERED: CARBOPROST TROMETHAMINE 250 MCG/ML AMPUL IM ONE ×2 (22:19→22:26)
[2019-04-24] MEDS ORDERED: HYDROCORTISONE ACETATE 25 MG SUPP PR PRN (22:19)
[2019-04-24] MEDS ORDERED: MEASLES, MUMPS & RUBELLA VIRUS VIAL SQ ONE (22:19)
[2019-04-24] MEDS ORDERED: METHYLERGONOVINE MALEATE 0.2 MG/ML AMP IM ONE (22:19)
[2019-04-24] MEDS ORDERED: DIPHTHERIA/TETANUS/PERTUSSIS 0.5 ML SYR/VIAL IM ONE (22:19)
[2019-04-24] MEDS ORDERED: ACETAMINOPHEN 325 MG TAB PO PRN (22:19)
--- NOTE | 2019-04-24 22:19 | Anesthesia Procedure Note ---
Date of Service April 24, 2019 Anesthesia Post Epidural Note Vital Signs Vital Signs: Temp Pulse Resp BP Pulse Ox 36.4 C L 74 22 142/81 H 100 04/24/19 13:00 04/24/19 22:17 04/24/19 20:30 04/24/19 22:17 04/24/19 21:02 Notes Mental Status: alert / awake / arousable and participated in evaluation Patient Amnestic to Procedure: Yes Nausea / Vomiting: adequately controlled Pain: adequately controlled Airway Patency, RR, SpO2: stable & adequate BP & HR: stable & adequate Hydration State: stable & adequate Anesthetic Complications: no major complications apparent and Pt Satisfied with anesthetic care
[2019-04-24] MEDS ORDERED: miSOPROStoL 200 MCG TAB ONE (22:23)
[2019-04-24] MEDS ORDERED: CARBOPROST TROMETHAMINE 250 MCG/ML AMPUL ONE (22:25)
[2019-04-24] MEDS ORDERED: SODIUM CHLORIDE 0.9% 250 ML IV PRN (22:25)
[2019-04-24] MEDS ORDERED: OXYTOCIN 40 UNITS in LACTATED RINGER'S 1,000 ML IV SCH (22:30)
[2019-04-24] MEDS: OXYCODONE/ACETAMINOPHEN 5mg/325mg TAB PO PRN (22:42)
[2019-04-24] MEDS: FERROUS SULFATE 325 MG TAB PO SCH (22:46)
[2019-04-24] MEDS ORDERED: METOCLOPRAMIDE HCL INJ 5 MG/ML 2 ML VIAL IV PRN (23:10)
[2019-04-24 23:31] LABS: Hematocrit (blood only) 34.1 % (37-47); Hemoglobin 11.8 g/dL (12.0-16.0); Mean Corpuscular Hemoglobin 30.3 pg (25-34); Mean Corpuscular Hgb Conc 34.6 g/dL (32-36); Mean Corpuscular Volume 87.4 fL (80-100); Platelet Count 147 K/uL (130-400); RDW Coefficient of Variation 13.4 % (11.5-14.5); RDW Standard Deviation 42.4 fL (36.4-46.3); White Blood Count 14.11 K/uL (4.8-10.8)
[2019-04-24 23:54] LABS: Basophils # (auto) 0.01 K/uL (0-0.2); Basophils % (auto) 0.1 %; Eosinophils # (auto) 0.04 K/uL (0-0.5); Eosinophils % (auto) 0.3 %; Immature Granulocytes # (auto) 0.04 K/uL (0.00-0.02); Immature Granulocytes % (auto) 0.3 %; Lymphocytes # (auto) 1.13 K/uL (1.2-3.4); Monocytes % (auto) 4.3 %; Neutrophils # (auto) 12.29 K/uL (1.4-6.5); RBC Morphology Unremarkable
[2019-04-25] MEDS: FLUOXETINE HCL 20 MG CAP PO SCH ×2 (00:19→20:45)
[2019-04-25] MEDS: VALACYCLOVIR HCL 500 MG TABLET PO SCH ×2 (00:19→20:46)
[2019-04-25 00:56] LABS: Fibrinogen 392 mg/dl (184-400); INR 0.9 (0.9-1.1); Partial Thromboplastin Ratio 0.9; Partial Thromboplastin Time 24.9 Seconds (21.0-31.0); Prothrombin Time 9.7 Seconds (9.0-12.0)
[2019-04-25] MEDS: METHYLERGONOVINE MALEATE 0.2 MG TAB PO SCH ×3 (01:49→20:43)
[2019-04-25] MEDS: OXYCODONE/ACETAMINOPHEN 5mg/325mg TAB PO PRN (04:06)
[2019-04-25 06:43] LABS: Hematocrit (blood only) 28.1 % (37-47); Hemoglobin 10.1 g/dL (12.0-16.0); Mean Corpuscular Hemoglobin 30.1 pg (25-34); Mean Corpuscular Hgb Conc 35.9 g/dL (32-36); Mean Corpuscular Volume 83.9 fL (80-100); Mean Platelet Volume 12.3 fL (7.4-10.4); Platelet Count 131 K/uL (130-400); RDW Coefficient of Variation 13.1 % (11.5-14.5); RDW Standard Deviation 39.5 fL (36.4-46.3); Red Blood Count 3.35 M/uL (4.2-5.4); White Blood Count 12.04 K/uL (4.8-10.8)
--- NOTE | 2019-04-25 07:08 | Delivery Summary ---
DATE OF OPERATION: 04/24/2019 FINDINGS: Time of delivery of baby A was 21:37. Baby A was a viable male infant, 3040 grams. Apgars 9/8. Baby B was delivered at 2143. Apgars were 8/9. The weight was 2420 grams. DETAILS OF DELIVERY: The patient is a 28-year-old G2, P1-0-0-1 at 38 weeks and 2 days of gestation with Di/Di twins. She was admitted today for induction of labor at term and both the babies were presenting cephalic which was confirmed with bedside ultrasound. She received Cervidil for cervical ripening, which gave her regular contractions which was taken out about 3 hours after, and then she received epidural for pain. She progressed to full dilatation spontaneously. She was taken to the OR where the OR team and anesthesiologist were ready. C Sections instruments were ready. She was placed in lithotomy position on OR bed. She pushed for about 20 minutes and delivered the baby A in direct occiput posterior position. Shoulders came right after the head. Baby A was handed off to the mother where mouth and nose were suctioned and cord was clamped x2 at 30 seconds delay and then baby A was taken by the land degradation analyst and cord was marked as A. Then cord blood was collected and marked as baby A. Pelvic exam was done. Cervix was stretchable to 10 cm. Baby B was presenting as vertex and it was at -2 station. With fundal pressure, the membranes were ruptured. Clear fluid was obtained and the patient pushing with 1 contraction, the baby B came down to pelvis at +3 station and then with the second push, the baby B was delivered, head came occiput anterior position and shoulders with the same push and baby B was handed off to the mother where mouth and nose were suctioned. Cord was clamped x2 and cut at 30 seconds delay, and then cord blood was obtained. The cord and the blood were marked as the baby B. Then the vagina checked for lacerations. There was a small second-degree perineal laceration on the posterior fourchette which was repaired with 2-0 Vicryl in a running locked fashion. Excellent hemostasis was achieved. Rectal exam was done, good sphincter tone was noted and no sutures were felt. The placenta was found to be in the vagina, delivered spontaneously intact and complete. It was sent to pathology. Uterus was explored, found to be enlarged with blood clots and those were emptied, but no retained placenta nor membranes were felt. Uterus was massaged. Clots were emptied. She was given IV oxytocin, IM Methergine and IM Hemabate and rectal Cytotec. The uterus was firm. EBL was 500 ml. Vagina and perineum were checked again and they were hemostatic and then procedure was ended. Mom and baby tolerated the procedure well. Sponge, lap, needle count was correct x3 and babies were taken to the nursery. Mom was taken to her labor room in stable condition. No complications happened and I was present during whole procedure. I attest to the content of the Intraoperative Record and any orders documented therein. Any exceptions are noted below. JUJU
[2019-04-25] MEDS: IBUPROFEN 600 MG TAB PO PRN ×2 (08:36→15:32)
[2019-04-25] MEDS: DOCUSATE SODIUM 100 MG CAP PO SCH ×2 (08:36→20:46)
[2019-04-25] MEDS: PRENATAL VITAMIN 1 TAB PO SCH (08:36)
[2019-04-25] MEDS: FERROUS SULFATE 325 MG TAB PO SCH ×2 (08:36→20:46)
--- NOTE | 2019-04-25 16:41 | Obstetrical Progress Note ---
Date of Service April 25, 2019 Subjective Ambulation: ambulating normally Voiding: no voiding problems Passing Gas:: Yes Diet Tolerance:: regular diet Lochia:: Small Feeding Type:: breast feeding Review of Systems All systems reviewed & are unremarkable except as noted in HPI & below Physical Exam Constitutional WD/WN, vitals as above well developed and well nourished Eyes PERRL, conjunctivae normal, anicteric sclerae Neck trachea midline, no thyromegaly Respiratory normal respiratory effort, lungs clear to auscultation Auscultation: no crackles, no rales and no wheezes Cardiovascular RRR, no murmur, no edema Gastrointestinal (Abdomen) normal bowel sounds, soft, nontender, no hepatosplenomegaly Uterus is below umbilicus Musculoskeletal no cyanosis or clubbing, extremities motor strength 5/5 Skin no rashes, warm and dry Neurologic patellar DTR's 2+ bilat, sensation intact Psychiatric A+Ox3, euthymic affect Genitourinary normal external appearance Results & Data Vital Signs (Past 12 Hours) Vital Signs Temp Pulse Resp BP Pulse Ox 04/25/19 09:00 37.1 C 87 18 133/81 97 04/25/19 06:00 121/79
[2019-04-25] MEDS ORDERED: bisacodyL 5 MG TABEC PO SCH (20:00)
[2019-04-26] MEDS: IBUPROFEN 600 MG TAB PO PRN ×4 (03:39→16:37)
[2019-04-26] MEDS: METHYLERGONOVINE MALEATE 0.2 MG TAB PO SCH ×4 (05:05→09:47)
[2019-04-26 06:37] LABS: Hemoglobin 8.7 g/dL (12.0-16.0)
[2019-04-26] MEDS: FERROUS SULFATE 325 MG TAB PO SCH (08:02)
[2019-04-26] MEDS: PRENATAL VITAMIN 1 TAB PO SCH (08:02)
[2019-04-26] MEDS: DOCUSATE SODIUM 100 MG CAP PO SCH (08:02)
--- NOTE | 2019-04-26 10:34 | Obstetrical Progress Note ---
Date of Service April 26, 2019 Assessment & Plan Admission and Anticipated Discharge Date Admission Date: April 24, 2019 Physical Exam Physical Exam: abdomen soft and non tender no calf tenderness ambulating well vaginal bleeding scant hgb 8.7 Results & Data ([facility]) Vital Signs (Past 12 Hours) Vital Signs Temp Pulse Pulse Pulse Resp BP BP 04/26/19 09:34 36.6 C 85 18 167/88 H 04/26/19 07:49 36.6 C 85 18 112/69 04/26/19 00:30 36.7 C 64 18 BP Pulse Ox 04/26/19 09:34 98 04/26/19 07:49 98 04/26/19 00:30 122/68
== END 2019-04-26 18:20 | disposition home or self-care (01) | DRG 806 ==
LOC: 4S1 12:27 → 4S2 04-25 00:43